=== PATIENT | male | born 1990 | race Caucasian/White ===

== ENCOUNTER 2024-09-25 00:12 | Emergency (ER) | payer OTHER, SELFPAY ==
--- NOTE | ~2024-09-25 | CT_ITS ---
EXAMINATION: CT cervical spine wo con DATE: 09/25/2024 00:54 INDICATION: Neck pain. Syncope. TECHNIQUE: Computed tomography (CT) of the cervical spine was performed without intravenous contrast. Automated exposure control and iterative reconstruction technique were employed. The dose-length pro duct was 494.60 mGy-cm. COMPARISON: None FINDINGS: Alignment is normal. Vertebral body heights and intervertebral disc heights are normal. At C7-T1, there is mild bilateral facet joint osteoarthritis. No neural foraminal stenosis or central ca nal stenosis. IMPRESSION: 1. No fracture. Reviewed, dictated and finalized at location A. IMPRESSION: 1. No fracture.
--- NOTE | ~2024-09-25 | XR_ITS ---
EXAMINATION: XR knee RT min 4V DATE: 09/25/2024 01:07 INDICATION: Right knee popping. TECHNIQUE: 4 views of right knee were obtained. COMPARISON: None. FINDINGS: Alignment is normal. No fracture. Joint spaces are normal. There is a small knee joint effu edvin. IMPRESSION: 1. Small knee joint effusion. Reviewed, dictated and finalized at location A.
--- NOTE | ~2024-09-25 | XR_ITS ---
EXAMINATION: XR chest 2V DATE: 09/25/2024 01:07 INDICATION: Syncope. TECHNIQUE: Frontal and lateral views of the chest were obtained. COMPARISON: Chest 2 views 10/29/2012 FINDINGS: There is no pneumonia, pleural effusion, or pneumothorax. The heart size is normal. IMPRESSION: 1. No acute cardiopulmonary disease. Reviewed, dictated and finalized at location A.
--- NOTE | ~2024-09-25 | CT_ITS ---
EXAMINATION: CT brain wo con DATE: 09/25/2024 00:54 INDICATION: Head injury. Syncope. TECHNIQUE: Computed tomography (CT) of the head was performed without intravenous contrast. The mA wa s adjusted according to patient size. Iterative reconstruction technique was employed. The dose-lengt h product was 605.33 mGy-cm. COMPARISON: None FINDINGS: There is no intracranial hemorrhage, acute infarction, or abnormal intracranial mass lesion . The ventricles are normal in size. The orbits are normal. There is mild mucosal thickening in the p aranasal sinuses. The mastoid air cells are normal. IMPRESSION: 1. Normal brain. Reviewed, dictated and finalized at location A. IMPRESSION: 1. Normal brain.
[2024-09-25 00:14] VITALS: BP 122/80; PULSE 72; RESP 16; TEMP 36.4; O2SAT 100
--- NOTE | 2024-09-25 00:19 | ECG_ITS ---
Test Date: 2024-09-25 00:24:31 Measurements Intervals [place] Rate: 65 P: 16 RI: 160 QRS: 12 QRSD: 109 T: 41 QT: 370 QTc: 385 Interpretive Statements SINUS RHYTHM SEPTAL MYOCARDIAL INFARCTION , OF INDETERMINATE AGE [40+ ms Q WAVE IN V1/V2] No previous ECG available for comparison Electronically Signed On 09-25-2024 15:32:10 CDT by Vince Duarte M.D.
[2024-09-25 00:26] LABS: Basophils Percent Auto 0.2 % (0.2-1.2); Eosinophils Absolute Auto 0.5 K/mm3 (0-0.3); Eosinophils Percent Auto 4.8 % (0-4.4); Hematocrit 39.4 % (42.0-52.0); Hemoglobin 14.5 g/dL (14.0-18.0); Immature Granulocyte Absolute 0.02 K/mm3 (0.00-0.031); Immature Granulocyte Percent A 0.2 % (0-0.5); Lymphocytes Absolute Auto 4.91 K/mm3 (0.9-3.2); Lymphocytes Percent Auto 48.7 % (18.3-44.2); Mean Corpuscular HGB Conc 36.8 g/dl (32-36); Mean Corpuscular Hemoglobin 29.8 pg (26-34); Mean Corpuscular Volume 81.1 fl (80-100); Mean Platelet Volume 10.2 fl (7.4-10.4); Monocytes Absolute Auto 0.7 K/mm3 (0.1-0.6); Monocytes Percent Auto 6.8 % (2.6-8.5); Neutrophils Percent Auto 39.3 % (45.5-73.1); Platelet Count Result 230 k/mm3 (150-375); Red Blood Count 4.86 M/mm3 (4.6-6.20); Red Cell Distribution Width 12.1 % (11.5-14.5); White Blood Count 10.1 K/mm3 (4.5-10.0)
[2024-09-25 00:27] VITALS: PULSE 68
[2024-09-25 00:28] VITALS: O2SAT 100
[2024-09-25 00:36] VITALS: BP 103/74; PULSE 84; RESP 12; O2SAT 100; O2SAT 97
[2024-09-25 00:36] LABS: Alanine Aminotransferase 29 U/L (6-50); Albumin Level 4.2 g/dL (3.5-5.1); Alkaline Phosphatase 66 U/L (38-126); Anion Gap 8 mmol/L (4-12); Aspartate Amino Transferase 28 U/L (17-59); Bilirubin,Total 0.4 mg/dL (0.2-1.3); Blood Urea Nitrogen 16 mg/dL (9-20); Calcium 9.1 mg/dL (8.4-10.2); Carbon Dioxide 27 mmol/L (22-30); Chloride 103 mmol/L (98-107); Estimated CRCL calculation 123 ml/min; Estimated Glomerular Filt Rate > 60; Glucose 104 mg/dL (65-110); Potassium 3.5 mmol/L (3.4-5.0); Sodium 138 mmol/L (137-145)
--- NOTE | 2024-09-25 00:36 | ED_ITS ---
HPI - Syncope General Chief Complaint: Syncope Stated Complaint: FALL, SYNCOPE Time Seen by Provider: 09/25/24 00:27 History of Present Illness HPI narrative: 34-year-old male presents to the emergency department via EMS from home for syncopal episode. Patient states he was walking when he felt his knee pop which caused him severe pain. He then became dizzy, diaphoretic and then lost consciousness. States he woke up his shaking him and attempt to wake him up. He hit his head on the bathroom vanity and presents with a laceration left posterior scalp. Bleeding controlled. Tdap is not updated. He is not anticoagulated. He states his right knee feels sore. He notes that his right knee has popped and cause him significant pain like this before. He also has a superficial abrasion to the left elbow and abrasion to his back. He is reporting pain to his head and neck. C-collar is in place. He denies other injuries acquired. Denies focal numbness, weakness or tingling. Denies chest pain or shortness of breath. Related Data Allergies Allergy/AdvReac Type Severity Reaction Status Date / Time No Known Allergies Allergy Verified 11/01/13 13:21 Review of Systems Review of Systems: All systems reviewed & are unremarkable except as noted in HPI and below Exam Narrative: GENERAL: Well-appearing, well-nourished, and in no acute distress. HEAD: Normocephalic, atraumatic. EYES: PERRLA and EOMI. ENT: Nares clear, no rhinorrhea or epistaxis. Mucous membranes moist. NECK: C-collar in place CHEST: Clear to auscultation. No respiratory distress. no tenderness to chest wall HEART: Regular rate and rhythm. No murmur heard. Normal peripheral pulses. ABDOMEN: Soft, nontender, nondistended, normal active bowel sounds. EXTREMITIES: no significant tenderness to bilateral upper lower extremities. Full range of motion of all extremities. Radial and DP pulses 2+. Sensation intact throughout. SKIN: 1 cm linear laceration to the left posterior lateral scalp, bleeding controlled. No deep structures or foreign bodies visualized. Abrasion to the left mid upper back with no significant tenderness of palpation. Superficial abrasion to the left elbow with tenderness. NEURO: No focal deficits. Alert and oriented x3 . Cranial nerves 2-12 intact. Strength 5/5 in BUE and BLE. Sensation intact throughout. Course Vital Signs Vital signs: Vital Signs Temperature 97.6 F 09/25/24 00:14 Pulse Rate 72 09/25/24 00:14 Respiratory Rate 16 09/25/24 00:14 Blood Pressure 122/80 09/25/24 00:14 Pulse Oximetry 100 09/25/24 00:14 Oxygen Delivery Room Air 09/25/24 00:14 Temperature 98.3 F 09/25/24 01:58 Pulse Rate 63 09/25/24 01:58 Respiratory Rate 15 09/25/24 01:58 Blood Pressure 120/78 09/25/24 01:58 Pulse Oximetry 100 09/25/24 01:58 Oxygen Delivery Room Air 09/25/24 00:36 MDM - Syncope MDM Narrative Medical decision making narrative: 34-year-old male presents to the ED via EMS from home after syncopal episode that occurred after his right knee popped and caused him significant pain. Triage vitals are stable. Exam is significant for the above. will obtain syncope workup, CT brain and cervical spine. CBC is largely unremarkable. Chemistries without electrolyte derangements. EKG shows sinus rhythm with Q-waves in V1 and V2, no ST elevations or depressions, normal QTC and QRS duration, normal NC interval. CT brain shows no acute intracranial findings. Chest x-ray is unremarkable. X-ray of the right k nee reveals a joint effusion, no acute fracture. CT cervical spine shows no acute fracture subluxation of the cervical spine. Patient's laceration was irrigated with normal saline and closed with 1 staple without complications. Given the popping sensation to the right knee and effusion found on x-ray, will place the patient in a knee immobilizer and provide crutches and orthopedic follow-up. He has no signs of septic arthritis on exam, no warmth or erythema, he has full active and passive range of motion without significant pain. Overall his syncopal event is consistent with vasovagal syncope. I advised close follow-up with his PCP. Strict ED return precautions discussed. He is agreeable to plan verbalized understanding. Discharged in stable condition. Lab Data 09/25/24 00:21 09/25/24 00:21 Labs: Lab Results 09/25/24 Range/Units 00:21 WBC 10.1 H (4.5-10.0) K/mm3 RBC 4.86 (4.6-6.20) M/mm3 Hgb 14.5 (14.0-18.0) g/dL Hct 39.4 L (42.0-52.0) % MCV 81.1 (80-100) fl MCH 29.8 (26-34) pg MCHC 36.8 H (32-36) g/dl RDW 12.1 (11.5-14.5) % Plt Count 230 (150-375) k/mm3 MPV 10.2 (7.4-10.4) fl Immature Gran % (Auto) 0.2 (0-0.5) % Neut % (Auto) 39.3 L (45.5-73.1) % Lymph % (Auto) 48.7 H (18.3-44.2) % Williams % (Auto) 6.8 (2.6-8.5) % Eos % (Auto) 4.8 H (0-4.4) % Baso % (Auto) 0.2 (0.2-1.2) % Lymph # (Auto) 4.91 H (0.9-3.2) K/mm3 Williams # (Auto) 0.7 H (0.1-0.6) K/mm3 Eos # (Auto) 0.5 H (0-0.3) K/mm3 Baso # (Auto) 0.0 (0.0-0.1) K/mm3 Abs Immat Gran (auto) 0.02 (0.00-0.031) K/mm3 Absolute Neuts (auto) 4.0 (1.3-6.7) K/mm3 Absolute Nucleated RBC 0.000 (0.0-0.012) K/mm3 Nucleated RBC % 0.0 (0.0-0.2) % Sodium 138 (137-145) mmol/L Potassium 3.5 (3.4-5.0) mmol/L Chloride 103 (98-107) mmol/L Carbon Dioxide 27 (22-30) mmol/L Anion Gap 8 (4-12) mmol/L BUN 16 (9-20) mg/dL Creatinine 0.90 (0.7-1.3) mg/dL Estim Creat Clear Calc 123 ml/min Estimated GFR > 60 (59 - ) Glucose 104 (65-110) mg/dL Calcium 9.1 (8.4-10.2) mg/dL Total Bilirubin 0.4 (0.2-1.3) mg/dL AST 28 (17-59) U/L ALT 29 (6-50) U/L Alkaline Phosphatase 66 (38-126) U/L Total Protein 8.0 (6.3-8.2) g/dL Albumin 4.2 (3.5-5.1) g/dL Discharge Plan Discharge Clinical Impression: Syncope, vasovagal, Effusion of knee joint right, Laceration Patient Disposition: Home, Self-Care Condition: Stable Instructions: Antibiotic Form, Laceration (DC), Syncope (DC), Knee Immobilizer (ED), Swollen Joint (ED) Additional Instructions: You were evaluated in the emergency department for syncopal episode after experiencing pain to your right knee. Your presentation is consistent with vas ovagal syncope as discussed. The x-ray of your knee reveals swelling to the knee joint. Please wear the knee immobilizer and follow-up closely with the orthopedic surgeon. You had 1 staple placed in the cut on your scalp. Please get this staple removed in 7 days. Return to the emergency department if you develop vision changes, focal numbness or weakness, chest pain or shortness of breath, or other concerning symptoms. Follow-up/Referrals: Avelino Santiago MD [Physician] - 1 Day Odilon Spears MD [Primary Care Provider] -
[2024-09-25] MEDS: TETANUS,DIPHTHERIA,AC PERTUSSIS ADULT (0.5 ML) BOOSTRIX IM (00:42)
[2024-09-25] MEDS: SODIUM CHLORIDE 0.9% IV 1,000 ML 999 ML IV CONT (00:43)
[2024-09-25 01:58] VITALS: BP 120/78; PULSE 63; RESP 15; TEMP 36.8; O2SAT 100
== END 2024-09-25 03:42 | disposition home or self-care (01) ==
PROVIDERS: Preventive Medicine Aerospace Medicine; Emergency Provider Physician Assistant; PCP Emergency Medicine
DX: R55 Syncope and collapse (principal); S01.01XA Laceration without foreign body of scalp, initial encounter; M25.461 Effusion, right knee; Z23 Encounter for immunization; R94.31 Abnormal electrocardiogram [ECG] [EKG]; W18.39XA Other fall on same level, initial encounter
CPT/HCPCS: 12001; 36415; 70450; 71046; 72125; 73564; 80053; 85025; 90471; 90715; 93005; 96360; 99284; J7030